=== PATIENT | female | born 2000 | race Caucasian/White ===

== ENCOUNTER 2019-01-08 17:40 | Emergency (ER) | payer OTHER, SELFPAY ==
--- OUTSIDE RECORDS SUMMARY | 2019-01-08 17:44 | XMS REPORT ---
:2000 [facility] Address [address] [place] [address] Dr. Vergara [address] [place] [id number] Care Team Providers Name Role Phone Unavailable Unavailable Unavailable Problems This patient has no known problems. Allergies, Adverse Reactions, Alerts This patient has no known allergies or adverse reactions. Medications This patient has no known medications.
--- NOTE | 2019-01-08 18:25 | EDPHYS ---
Physician Documentation [facility] Name: Rose Mary Ziegler Age: 18 yrs Sex: Female : 2000 Arrival Date: 01/08/2019 Time: 17:44 Bed 12 Private MD: None, None ED Physician Choco Landers HPI: 01/08 18:03 This 18 yrs old Female presents to ER via Ambulatory with complaints of Fall ps1 Injury. 18:03 patient states that she had a fall from standing height, slip and fall on wet floor. ps1 FOOSH left wrist pain. No obvious deformity. Pain localized a base of thumb. NV intact. RROM 2/2 pain. Able to ROM in all directions otherwise. . 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 - Social history:: Smoking status: Patient/guardian denies using tobacco. - Ebola Screening: : No symptoms or risks identified at this time. ROS: 18:03 Constitutional: Negative for fever, chills, and weight loss, Eyes: Negative for injury, ps1 pain, redness, and discharge, Cardiovascular: Negative for chest pain, palpitations, and edema, Respiratory: Negative for shortness of breath, cough, wheezing, and pleuritic chest pain, Abdomen/GI: Negative for abdominal pain, nausea, vomiting, diarrhea, and constipation, Skin: Negative for injury, rash, and discoloration, Neuro: Negative for headache, weakness, numbness, tingling, and seizure. 18:03 MS/extremity: Positive for tenderness, of the lateral aspect of left wrist. Exam: 18:03 Constitutional: This is a well developed, well nourished patient who is awake, alert, ps1 and in no acute distress. Head/Face: Normocephalic, atraumatic. Eyes: Pupils equal round and reactive to light, extra-ocular motions intact. Lids and lashes normal. Conjunctiva and sclera are non-icteric and not injected. Cardiovascular: Regular rate and rhythm. No gallops, murmurs, or rubs. Normal PMI, no JVD. No pulse deficits. Respiratory: Lungs have equal breath sounds bilaterally, clear to auscultation and percussion. No rales, rhonchi or wheezes noted. No increased work of breathing, no retractions or nasal flaring. 18:03 Musculoskeletal/extremity: Extremities: grossly normal except: noted in the lateral aspect of left hand: pain. Vital Signs: 17:49 BP 112 / 65; Pulse 71; Resp 18 S; Temp 98.3(TE); Pulse Ox 99% on R/A; Weight 76.2 kg aa5 (R); Height 5 ft. 2 in. (157.48 cm) (R); Pain 8/10; 17:49 Body Mass Index 30.73 (76.20 kg, 157.48 cm) aa5 MDM: 18:03 Patient medically screened. ps1 18:03 Data reviewed: vital signs, nurses notes. ps1 01/08 17:57 Order name: Wrist Left (3 View) XRAY ps1 01/08 18:23 Order name: Thumb Spica Splint; Complete Time: 18:40 ps1 Administered Medications: No medications were administered Disposition: 01/08/19 18:25 Discharged to Home. Impression: Pain in left wrist. - Condition is Stable. - Discharge Instructions: Joint Pain. - Prescriptions for Anaprox DS 550 mg Oral Tablet - take 1 tablet by ORAL route every 12 hours As needed; 20 tablet. - Medication Reconciliation Form, Thank You Letter, Antibiotic Education, Prescription Opioid Use form. - Follow up: Private Physician; When: As needed; Reason: Further diagnostic work-up, Recheck today's complaints, Re-evaluation by your physician. Follow up: Emergency Department; When: As needed; Reason: Worsening of condition. - Problem is new. - Symptoms are unchanged. Signatures: Dispatcher [employer] EDMS Montserrat Sanchez RN RN aa5 Sonali Francois RN RN ak1 Choco Landers MD MD ps1 Corrections: (The following items were deleted from the chart) 18:41 18:25 01/08/2019 18:25 Discharged to Home. Impression: Pain in left wrist. Condition is ak1 Stable. Forms are Medication Reconciliation Form, Thank You Letter, Antibiotic Education, Prescription Opioid Use. Follow up: Private Physician; When: As needed; Reason: Further diagnostic work-up, Recheck today's complaints, Re-evaluation by your physician. Follow up: Emergency Department; When: As needed; Reason: Worsening of condition. Problem is new. Symptoms are unchanged. ps1
--- NOTE | 2019-01-08 18:25 | ER ---
Nurse's Notes [facility] Name: Rose Mary Ziegler Age: 18 yrs Sex: Female : 2000 Arrival Date: 01/08/2019 Time: 17:44 Bed 12 Private MD: None, None Diagnosis: Pain in left wrist Presentation: 01/08 17:48 Presenting complaint: Patient states: "I slipped and fell this morning and hurt my left aa5 wrist". pt c/o left wrist pain, denies head injury, denies LOC. Transition of care: patient was not received from another setting of care. Onset of symptoms was January 08, 2019. Risk Assessment: Do you want to hurt yourself or someone else? Patient reports no desire to harm self or others. Initial Sepsis Screen: Does the patient meet any 2 criteria? No. Patient's initial sepsis screen is negative. Does the patient have a suspected source of infection? No. Patient's initial sepsis screen is negative. Care prior to arrival: None. 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 - Social history:: Smoking status: Patient/guardian denies using tobacco. - Ebola Screening: : No symptoms or risks identified at this time. Screenin:02 Abuse screen: Denies threats or abuse. Denies injuries from another. Nutritional ak1 screening: No deficits noted. Tuberculosis screening: No symptoms or risk factors identified. Fall Risk None identified. Assessment: 18:00 General: Appears in no apparent distress. comfortable, Behavior is calm, cooperative. ak1 Pain: Complains of pain in lateral aspect of left wrist and lateral aspect of left hand. Neuro: No deficits noted. Cardiovascular: No deficits noted. Respiratory: No deficits noted. GI: No signs and/or symptoms were reported involving the gastrointestinal system. : No signs and/or symptoms were reported regarding the genitourinary system. EENT: No signs and/or symptoms were reported regarding the EENT system. Derm: No signs and/or symptoms reported regarding the dermatologic system. Musculoskeletal: Capillary refill < 3 seconds, in left fingers. ice applied to left wrist. Range of motion: limited in left wrist, left thumb Swelling absent Reports pain in left wrist since 0900 s/p fall. Vital Signs: 17:49 BP 112 / 65; Pulse 71; Resp 18 S; Temp 98.3(TE); Pulse Ox 99% on R/A; Weight 76.2 kg aa5 (R); Height 5 ft. 2 in. (157.48 cm) (R); Pain 8/10; 17:49 Body Mass Index 30.73 (76.20 kg, 157.48 cm) aa5 ED Course: 17:44 Patient arrived in ED. dp 17:45 None, None is Private Physician. dp 17:48 Arm band placed on. aa5 17:49 Triage completed. aa5 17:54 Sonali Francois RN is Primary Nurse. ak1 17:56 Choco Landers MD is Attending Physician. ps1 18:02 Patient has correct armband on for positive identification. Call light in reach. Side ak1 rails up X 1. Adult w/ patient. Pulse ox on. NIBP on. 18:40 No provider procedures requiring assistance completed. Patient did not have IV access ak1 during this emergency room visit. 19:11 Wrist Left (3 View) XRAY In Process Unspecified. EDMS Administered Medications: No medications were administered Outcome: 18:25 Discharge ordered by . ps1 18:40 Discharged to home ambulatory, with family. ak1 18:40 Condition: good 18:40 Discharge instructions given to patient, family, Instructed on discharge instructions, follow up and referral plans. no drinking with medication, no driving heavy equipment, medication usage, splint care Demonstrated understanding of instructions, follow-up care, medications, splint care, Prescriptions given X 1. 18:41 Patient left the ED. ak1 Signatures: Dispatcher [employer] EDMS Montserrat Sanchez, RN RN aa5 Sonali Francois, PRISCILLA RN ak1 Choco Landers MD MD ps1 León Pitts dp
--- NOTE | 2019-01-08 19:18 | RAD REPORT ---
EXAM DESCRIPTION: RAD - Wrist Left 3 View - 01/08/2019 7:04 pm CLINICAL HISTORY: Left wrist pain status post injury FINDINGS: No fracture or dislocation is seen. If the patient continues to have symptoms to suggest an occult fracture then a followup plain film se miguelina in 7 days would be recommended
== END 2019-01-08 18:41 | disposition home or self-care (01) ==
LOC: ER 17:40
DX: M25.532 Pain in left wrist (principal)
CPT/HCPCS: 99283

== ENCOUNTER 2019-06-20 16:04 | Emergency (ER) | payer SELFPAY ==
--- OUTSIDE RECORDS SUMMARY | 2019-06-20 16:07 | XMS REPORT | Summary of Care ---
:2000 Author Organization [facility] Address [address] [place] [id number] Care Team Providers Name Role Phone Corey Fournier [facility] Primary Care Provider Reason for Visit Reason Comments DEPO PROVERA Encounter Details Date Type Department Care Team Description 03/02/2019 Nurse Visit [facility] Corey Fournier, TECHNICAL ACCOUNT REPRESENTATIVE [address] [place] [address] Depo-Provera [place] Visit, [facility] Nurse contraceptive status [address] (Primary Dx) [place] [address] Allergies No Known Allergiesdocumented as of this encounter (statuses as of 03/02/2019) Medications Medication Sig Dispensed Refills Start Date End Date Status butalbital-acetaminoph Take 1 tablet by 20 tablet 0 10/20/2018 Active en-caff 50-325-40 mg mouth every 4 tabletIndications: (four) hours as Other headache needed for Pain syndrome (scale 4-6). Hospital, Clinic, or Other Ordered Dose Route Frequency Start Date End Date Status Facility Administered Medication medroxyPROGESTERone 150 mg IM [id number] 06/06/2018 03/02/2019 Ended (DEPO-PROVERA) injection 150 mgIndications: Encounter for surveillance of injectable contraceptive documented as of this encounter (statuses as of 03/02/2019) Active Problems Problem Noted Date Well woman exam 04/13/2017 Encounter for contraceptive management, unspecified type 04/13/2017 Depo-Provera contraceptive status 04/13/2017 Screening for STD (sexually transmitted disease) 04/13/2017 Anal fissure 04/13/2017 Constipation, unspecified constipation type 04/13/2017 Morbid obesity 04/13/2017 Anxiety 11/27/2013 Overview: Overview: Diagnosed with anxiety, panic attacks in public places. Currently see psychiatry and on Paxil 10 mg. 12/25/2013 Saw psychiatry and is on Paxil 20 mg. Next appointment is about 1 month later. Suicidal thoughts 10/04/2013 documented as of this encounter (statuses as of 03/02/2019) Resolved Problems Problem Noted Date Resolved Date BMI 40.0-44.9, adult 04/13/2017 06/06/2018 Other general counseling and advice for contraceptive 04/13/2016 04/13/2017 management Depo-Provera contraceptive status 04/13/2016 04/13/2017 Headache disorder 02/05/2014 04/13/2017 Migraine without status migrainosus, not intractable 02/05/2014 04/13/2017 Overview: Overview: 02/11/2014 Saw neurology, headaches better on paxil, avoid using advil, follow up in 6 months. Increased body mass index (BMI) 12/25/2013 04/13/2017 Overview: Overview: 12/25/2013 Counseling provided, fasting labs ordered. Vitamin D deficiency 11/30/2013 04/13/2017 Overview: Overview: 11/15/13 VItamin D 25OH level is 17, will rescreen in 1 month. 12/25/2013 Vitamin D level reordered. 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 Dizziness 04/13/2017 Blurred vision 04/13/2017 documented as of this encounter (statuses as of 03/02/2019) Immunizations Name Administration Dates Next Due DTAP 02/10/2004, 12/01/2000, 01/04/2000, [birth year] H1n1 Vaccine 06/18/2009 HEPATITIS A 02/23/2002, 08/28/2001 HIB 4 Dose Schedule 12/01/2000, 01/04/2000, [birth year] HPV 04/17/2015, 02/25/2012, 08/12/2010 Hep B, Adol or Pedi Dosage 01/04/2000, 2000, 2000 Influenza Virus Vaccine 07/17/2013, 08/12/2010 Influenza Virus Vaccine Quad IM 3+ YRS 04/17/2015 Influenza Virus Vaccine Quad IM 04/17/2014 Multi-dose 6+ MO MMR 04/17/2015, 02/10/2004, 07/01/2000 Meningococcal Vaccine 02/25/2012, 08/12/2010 Pneumococcal 7 Conjugate, PCV7 12/01/2000, 07/01/2000 (Prevnar7) Polio (IPV/OPV) 02/10/2004, 03/28/2000, 1999, 1999 Tdap 02/25/2012, 08/12/2010 Varicella (varivax)(chicken pox) 02/25/2012, 07/01/2000 documented as of this encounter Social History Tobacco Use Types Packs/Day Years Used Date Never Smoker Smokeless Tobacco: Never Used Alcohol Use Drinks/Week oz/Week Comments No 0 Standard drinks or equivalent 0.0 Sex Assigned at Date Recorded Not on file Job Start Date Occupation Industry Not on file Not on file Not on file Travel History Travel Start Travel End No recent travel history available. documented as of this encounter Last Filed Vital Signs Vital Sign Reading Time Taken Comments Blood Pressure 105/69 03/02/2019 8:20 AM CDT Pulse 59 03/02/2019 8:20 AM CDT Temperature 36.4 C (97.6 F) 03/02/2019 8:20 AM CDT Respiratory Rate 18 03/02/2019 8:20 AM CDT Oxygen Saturation - - Inhaled Oxygen Concentration - - Weight 75.5 kg (166 lb 8 oz) 03/02/2019 8:20 AM CDT Height 157.5 cm (5' 2") 03/02/2019 8:20 AM CDT Body Mass Index 30.45 03/02/2019 8:20 AM CDT documented in this encounter Patient Instructions Patient InstructionsYen Llanos LVN - 03/02/2019 8:00 AM CDT Medroxyprogesterone injection [Contraceptive] Brand Names: Depo-Provera, Depo-subQ Provera 104 What is this medicine? MEDROXYPROGESTERONE (me DROX ee proe JOB te jess) contraceptive injections prevent . They provide effective control for 3 months. Depo-subQ Provera 104 is also used for treating pain related to endometriosis. How should I use this medicine? Depo-Provera Contraceptive injection is given into a muscle. Depo-subQ Provera 104 injection is given under the skin. These injections are given by a health healthcare prof. You must not be before getting an injection. The injection is usually given during the first 5 days after the start of a menstrual period or 6 weeks after delivery of a baby. Talk to your real estate appraiser regarding the use of this medicine in children. Special care may be needed. These injections have been used in female children who have started having menstrual periods. What side effects may I notice from receiving this medicine? Side effects that you should report to your doctor or health healthcare prof as soon as possible: allergic reactions like skin rash, itching or hives, swelling of the face, lips, or tongue breast tenderness or discharge breathing problems changes in vision depression feeling faint or lightheaded, falls fever pain in the abdomen, chest, groin, or leg problems with balance, talking, walking unusually weak or tired yellowing of the eyes or skin Side effects that usually do not require medical attention (report to your doctor or health healthcare prof if they continue or are bothersome): acne fluid retention and swelling headache irregular periods, spotting, or absent periods temporary pain, itching, or skin reaction at site where injected weight gain What may interact with this medicine? Do not take this medicine with any of the following medications: bosentan This medicine may also interact with the following medications: aminoglutethimide antibiotics or medicines for infections, especially rifampin, rifabutin, rifapentine, and griseofulvin aprepitant barbiturate medicines such as phenobarbital or primidone bexarotene carbamazepine medicines for seizures like ethotoin, felbamate, oxcarbazepine, phenytoin, topiramate modafinil [place]'s wort What if I miss a dose? Try not to miss a dose. You must get an injection once every 3 months to maintain control. If you cannot keep an appointment, call and reschedule it. If you wait longer than 13 weeks between Depo-Provera contraceptive injections or longer than 14 weeks between Depo-subQ Provera 104 injections, you could get . Use another method for control if you miss your appointment. You may also need a test before receiving another injection. Where should I keep my medicine? This does not apply. The injection will be given to you by a health healthcare prof. What should I tell my health care provider before I take this medicine? They need to know if you have any of these conditions: frequently drink alcohol asthma blood vessel disease or a history of a blood clot in the lungs or legs bone disease such as osteoporosis breast cancer diabetes eating disorder (anorexia nervosa or bulimia) high blood pressure HIV infection or AIDS kidney disease liver disease mental depression migraine seizures (convulsions) stroke tobacco smoker vaginal bleeding an unusual or allergic reaction to medroxyprogesterone, other hormones, medicines, foods, dyes, or preservatives or trying to get breast-feeding What should I watch for while using this medicine? This drug does not protect you against HIV infection (AIDS) or other sexually transmitted diseases. Use of this product may cause you to lose calcium from your bones. Loss of calcium may cause weak bones (osteoporosis). Only use this product for more than 2 years if other forms of control are not right for you. The longer you use this product for control the more likely you will be at risk for weak bones. Ask your health healthcare prof how you can keep strong bones. You may have a change in bleeding pattern or irregular periods. Many females stop having periods while taking this drug. If you have received your injections on time, your chance of being is very low. If you think you may be , see your health healthcare prof as soon as possible. Tell your health healthcare prof if you want to get within the next year. The effect of this medicine may last a long time after you get your last injection. NOTE:This sheet is a summary. It may not cover all possible information. If you have questions aboutthis medicine, talk to your doctor, pharmacist, or health care provider. Copyright 2018 Elsevier documented in this encounter Progress Notes Yen Llanos LVN - 03/02/2019 8:00 AM CDT18 year old female has been identified by and name. Verbal consent has been obtained by patientto have an injection of Depo Provera, as ordered by the provider. Date of last Depo Provera injection:11/30/2018, UPT negative today Last WWE: 06/06/2018 Encounter Diagnosis: v25.49 The site was cleaned with an alcohol swab and given intramuscularly (IM) in the left gluteus. A band aid dressing was then applied to the injection site. The patient tolerated the procedure well . Advised patient on Calcium intake 500-1200 mg daily. ED warnings given. Patient to return to clinic in 12 weeks for next Depo. Patient verbalized understanding. Yen Llanos LVN 03/02/2019 8:21 AM documented in this encounter Plan of Treatment Date Type Specialty Care Team Description 05/25/2019 Nurse Visit OB Satellites Visit, [facility] Nurse Health Maintenance Due Date Last Done Comments MENINGOCOCCAL B VACCINES (1 2009 of 2 - Risk Bexsero 2-dose series) INFLUENZA VACCINE (#1) 2019 04/17/2015, 04/17/2014, 07/17/2013, Additional history exists CHLAMYDIA SCREENING 06/06/2019 06/06/2018, 12/06/2017, 04/13/2017, Additional history exists DTaP,Tdap,and Td Vaccines (8 02/24/2022 02/25/2012, 08/12/2010, - Td) 02/10/2004, Additional history exists PNEUMOCOCCAL 0-64 YEARS Completed 12/01/2000, 07/01/2000 COMBINED SERIES MENINGOCOCCAL VACCINE Aged Out 02/25/2012, 08/12/2010 No longer eligible based on patient's age to complete this topic VARICELLA VACCINES Completed 02/25/2012, 07/01/2000 HPV VACCINES Completed 04/17/2015, 02/25/2012, 08/12/2010 documented as of this encounter Procedures Procedure Name Priority Date/Time Associated Diagnosis Comments POCT Routine 03/02/2019 8:15 Depo-Provera Results for this TEST AM CDT contraceptive status procedure are in the results section. documented in this encounter Results POCT TEST (03/02/2019 8:15 AM CDT) POCT PREG Negative On board controls acceptable Yes with C Line POCT PREG LOT # POCT PREG TEST DATE Specimen Urine - URINE, CLEAN CATCH documented in this encounter Visit Diagnoses Diagnosis Depo-Provera contraceptive status - Primary Surveillance of other previously prescribed contraceptive method documented in this encounter Administered Medications Medication Order MAR Action Action Date Dose Rate Site medroxyPROGESTERone Given 03/02/2019 8:31 150 mg Left Upper Quad. (DEPO-PROVERA) injection 150 AM CDT Gluteus mg 150 mg, Intramuscular, [id number], 4 doses, First dose on Tue06/06/18 at 1615, Last dose on Tue02/13/19 at 1615, Routine Given 11/30/2018 2:22 PM CDT 150 mg Right Dorsogluteal-IM Given 08/29/2018 4:24 PM [employer] 150 mg Right Deltoid-IM documented in this encounter Insurance Payer Benefit Plan Subscriber ID Effective Phone Address Type / Group Dates [facility] xxxxxxxxx 2019-[facility] [phone] [place] 00 [id number] [place] [address] documented as of this encounter Advance Directives Name Relationship Healthcare Agent Relationship Communication Cristel Morrell Grandparent Primary healthcare agent [phone] ([email or web address]
--- OUTSIDE RECORDS SUMMARY | 2019-06-20 16:07 | XMS REPORT | Summary of Care ---
:2000 Author Organization [facility] Address [address] [place] [address] Care Team Providers Name Role Phone Corey Fournier [facility] Primary Care Provider Reason for Visit Reason Comments DEPO PROVERA Encounter Details Date Type Department Care Team Description 03/02/2019 Nurse Visit 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 You must not be before getting an injection. The injection is usually given during the first 5 days after the start of a menstrual period or 6 weeks after delivery of a baby. Talk to your configuration engineer regarding the use of this medicine in children. Special care may be needed. These injections have been used in female children who have started having menstrual periods. What side effects may I notice from receiving this medicine? Side effects that you should report to your doctor or health occasional caregiver as soon as possible: allergic reactions like [...] attention (report to your doctor or health occasional caregiver if they continue or are bothersome): acne [...] like ethotoin, felbamate, oxcarbazepine, phenytoin, topiramate modafinil Glidden's wort What if I miss a dose? [...] be given to you by a health occasional caregiver. What should I tell my health care [...] risk for weak bones. Ask your health occasional caregiver how you can keep strong bones. You may have a change in bleeding pattern or irregular periods. Many females stop having periods while taking this drug. If you have received your injections on time, your chance of being is very low. If you think you may be , see your health occasional caregiver as soon as possible. Tell your health occasional caregiver if you want to get within the [...] Description 05/25/2019 Nurse Visit [facility] Visit, [facility] Nurse Name Type Priority Associated Diagnoses Order Schedule POCT TEST LAB Routine Depo-Provera contraceptive Ordered: 2018 status Health Maintenance Due Date Last Done Comments [...] 02/25/2012, 08/12/2010 documented as of this encounter Results Not on filedocumented in this encounter Visit Diagnoses Diagnosis Depo-Provera contraceptive status - Primary Surveillance of other previously prescribed contraceptive method documented in this encounter Administered Medications Medication Order MAR Action Action Date Dose Rate Site medroxyPROGESTERone Given 03/02/2019 8:31 150 mg Left Upper Quad. (DEPO-PROVERA) injection 150 AM CDT Gluteus mg 150 mg, Intramuscular, [id number], 4 doses, First dose on Tue06/06/18 at 1615, Last dose on Tue02/13/19 at 1615, Routine Given 11/30/2018 2:22 PM CDT 150 mg Right Dorsogluteal-IM Given 08/29/2018 4:24 PM ARTIST MANAGER 150 mg Right Deltoid-IM documented in this encounter Insurance Payer Benefit Plan Subscriber ID Effective Phone Address Type / Group Dates [facility] xxxxxxxxx 2019-Prese [phone] Medicaid WOMEN [address] [place] [address] documented as of this encounter Advance Directives Name Relationship Healthcare Agent Relationship Communication Cristel Morrell Grandparent Primary healthcare agent [phone] ([email or web address]
--- OUTSIDE RECORDS SUMMARY | 2019-06-20 16:07 | XMS REPORT ---
:2000 [facility] Address [address] [place] [address] Dr. Vergara [address] [place] [id number] Care Team Providers Name Role Phone Unavailable Unavailable Unavailable Problems This patient has no known problems. Allergies, Adverse Reactions, Alerts This patient has no known allergies or adverse reactions. Medications This patient has no known medications.
--- OUTSIDE RECORDS SUMMARY | 2019-06-20 16:07 | XMS REPORT | Summary of Care ---
:2000 Author Organization [facility] Address [address] [place] [address] Care Team Providers Name Role Phone Corey Fournier [facility] Primary Care Provider Reason for Visit Reason Comments DEPO PROVERA Encounter Details Date Type Department Care Team Description 03/02/[address] [facility]- Corey Fournier, SENIOR FINANCIAL [address] [place] [address] Depo-Provera [place] Visit, 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 You must not be before getting an injection. The injection is usually given during the first 5 days after the start of a menstrual period or 6 weeks after delivery of a baby. Talk to your project coordinator rn regarding the use of this medicine in children. Special care may be needed. These injections have been used in female children who have started having menstrual periods. What side effects may I notice from receiving this medicine? Side effects that you should report to your doctor or health day care home mother as soon as possible: allergic reactions like [...] attention (report to your doctor or health day care home mother if they continue or are bothersome): acne [...] like ethotoin, felbamate, oxcarbazepine, phenytoin, topiramate modafinil Carrier's wort What if I miss a dose? [...] be given to you by a health day care home mother. What should I tell my health care [...] risk for weak bones. Ask your health day care home mother how you can keep strong bones. You may have a change in bleeding pattern or irregular periods. Many females stop having periods while taking this drug. If you have received your injections on time, your chance of being is very low. If you think you may be , see your health day care home mother as soon as possible. Tell your health day care home mother if you want to get within the [...] Description 05/25/2019 Nurse Visit [facility] Satellites Visit, [facility] Nurse Name Type Priority Associated Diagnoses Order [...] AM CDT Gluteus mg 150 mg, Intramuscular, [id number], 4 doses, First dose on Tue06/06/18 at 1615, Last dose on Tue02/13/19 at 1615, Routine Given 11/30/2018 2:22 PM CDT 150 mg Right Dorsogluteal-IM Given 08/29/2018 4:24 PM SENIOR LINUX SYSTEMS ENGINEER 150 mg Right Deltoid-IM documented in this encounter Insurance Payer Benefit Plan Subscriber ID Effective Phone Address Type / Group Dates [facility] xxxxxxxxx 2019-Prese [phone] Medicaid WOMEN [address] [place] [address] documented as of this encounter Advance Directives Name Relationship Healthcare Agent Relationship Communication Cristel Morrell Grandparent Primary healthcare agent [phone] ([email or web address]
[2019-06-20] MEDS ORDERED: NA CHLORIDE 0.9% 1,000 ML ONE ×2 (16:29→17:34)
[2019-06-20 17:03] LABS: Absolute Lymphocytes (CBC) 1.8 K/uL (0.7-4.9); Basophils % 0.7 % (0-1.3); Hematocrit 45.9 % (36.0-45.0); Lymphocytes % 46.5 % (15.3-44.8); MPV 9.3 fL (7.6-11.3); RBC Red Blood Cell Count 5.18 M/uL (3.86-4.86)
[2019-06-20 17:06] LABS: Urine Blood TRACE (NEG); Urine Glucose NEGATIVE (NEG); Urine Protein 1+ (NEG); Urine Specific Gravity 1.025 (1.005-1.030); Urine pH 5.5 (5.0-7.0)
[2019-06-20 17:28] LABS: Potassium 3.7 mmol/L (3.5-5.1)
[2019-06-20 17:57] LABS: Urine Bacteria 20-50 /HPF (<20); Urine RBC <5 /HPF (NONE SEEN)
[2019-06-20 17:58] LABS: Urine Culture Reflex Order NOT NEEDED; Urine Mucus 2+ /HPF (NONE SEEN)
[2019-06-20] MEDS ORDERED: KETOROLAC 30 MG/ML INJ ONE (18:16)
[2019-06-20 18:28] LABS: Urine Specific Gravity 1.025 (1.005-1.030)
--- NOTE | 2019-06-20 18:57 | RAD REPORT ---
EXAM DESCRIPTION: CT - Abdomen Pelvis W Contrast - 06/20/2019 5:53 pm CLINICAL HISTORY: r/o pyelonephritisabdominal pain, kidney infection, possible pyelonephritis COMPARISON: None. TECHNIQUE: Biphasic, helical CT imaging of the abdomen and pelvis was performed following 100 ml non -ionic IV contrast. No oral contrast. All CT scans are performed using dose optimization technique as appropriate and may include automated exposure control or mA/KV adjustment according to patient size. FINDINGS: No suspicious findings in the lung bases. The liver, spleen, and pancreas show no suspicious findings. Gallbladder and biliary tree are also wi thout suspicious finding. Symmetric renal function is seen with no hydronephrosis or suspicious renal mass. No pyelonephritis o r acute parenchymal process. No bladder abnormalities. No adrenal abnormalities. Uterus and ovaries show no suspicious findings. No dilated bowel loops or bowel wall thickening. No appendicitis findings. No free air or pneumatosis . Physiologic quantity of free fluid in the cul de sac. No hernia, mass or bulky lymphadenopathy. Pa tient has nonspecific bilateral inguinal lymph nodes up to 2.5 cm in size. Few small iliac chain lymp h nodes are present. No suspicious bony findings. IMPRESSION: No pyelonephritis or acute finding. No appendicitis or acute GI finding. No DIRECTOR OF MARKETING OPERATIONS abnormality seen.
--- NOTE | 2019-06-20 19:14 | ER ---
Nurse[facility] Name: Rose Mary Ziegler Age: 18 yrs Sex: Female : 2000 Arrival Date: 06/20/2019 Time: 16:07 Bed 20 Private MD: Diagnosis: Dehydration Presentation: 06/20 16:11 Presenting complaint: Low back pain x 1 week, headache and nausea x 3 days, dizziness hb since last night. Transition of care: patient was not received from another setting of care. Onset of symptoms was June 14, 2019. Risk Assessment: Do you want to hurt yourself or someone else? Patient reports no desire to harm self or others. Initial Sepsis Screen: Does the patient meet any 2 criteria? No. Patient's initial sepsis screen is negative. Care prior to arrival: None. 16:11 Method Of Arrival: Ambulatory hb 16:11 Acuity: ABY 3 hb Triage Assessment: 16:15 General: Appears in no apparent distress. comfortable, Behavior is cooperative, bp appropriate for age, anxious. Pain: Denies pain. EENT: No deficits noted. Neuro: No deficits noted. Cardiovascular: Rhythm is sinus rhythm. Respiratory: No deficits noted. GI: No signs and/or symptoms were reported involving the gastrointestinal system. : Reports burning with urination. Derm: No deficits noted. Musculoskeletal: No deficits noted. 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 - Social history:: Smoking status: Patient/guardian denies using tobacco. - Ebola Screening: : No symptoms or risks identified at this time. Screenin:05 Abuse screen: Denies threats or abuse. Denies injuries from another. Nutritional bp screening: No deficits noted. Tuberculosis screening: No symptoms or risk factors identified. Fall Risk None identified. Assessment: 16:15 General: SEE TRIAGE NOTE. bp 17:00 Reassessment: IVF INFUSING. bp 17:40 Reassessment: PT TO CT. bp 18:28 Reassessment: IVF INFUSING FOR DISPO. bp 19:28 Reassessment: Patient appears in no apparent distress at this time. Patient is alert, rr5 oriented x 3, equal unlabored respirations, skin warm/dry/pink. discharge instruction given and explained without complaints made. General: Appears in no apparent distress. comfortable, Behavior is calm, cooperative, appropriate for age. Neuro: Level of Consciousness is awake, alert, obeys commands, Oriented to person, place, time, situation, Appropriate for age. Cardiovascular: Capillary refill < 3 seconds Patient's skin is warm and dry. Respiratory: Airway is patent Respiratory effort is even, unlabored, Respiratory pattern is regular, symmetrical. GI: No signs and/or symptoms were reported involving the gastrointestinal system. Musculoskeletal: Capillary refill < 3 seconds. Vital Signs: 16:13 BP 123 / 84; Pulse 75; Resp 16; Temp 98.4(O); Pulse Ox 99% on R/A; Weight 76.66 kg; hb Height 5 ft. 2 in. (157.48 cm); Pain 7/10; 17:00 BP 100 / 49; Pulse 63; Resp 16; Pulse Ox 100% ; bp 17:05 BP 115 / 71 Supine; Pulse 62; Pulse Ox 100% ; bp 17:07 BP 114 / 72; Pulse 84; Pulse Ox 100% ; bp 18:00 BP 109 / 73; Pulse 83; Resp 20; Pulse Ox 94% ; bp 19:20 BP 105 / 62; Pulse 79; Resp 18; Temp 98; Pulse Ox 99% ; Pain 0/10; rr5 16:13 Body Mass Index 30.91 (76.66 kg, 157.48 cm) hb ED Course: 16:07 Patient arrived in ED. as 16:08 Cyril Muniz FNP-C is PHCP. la1 16:08 Raman Draper MD is Attending Physician. la1 16:10 PHCP role handed off by Cyril Muniz FNP-C kb 16:10 Bri Alonso FNP-C is PHCP. kb 16:12 Triage completed. hb 16:14 Arm band placed on. hb 16:15 Venkat Moreira, PRISCILLA is Primary Nurse. bp 16:21 Radiology exam delayed due to lab results not completed at this time. (BUN/Creatinine). vm2 16:30 Inserted saline lock: 20 gauge in right antecubital area, using aseptic technique. bp Blood collected. 17:05 Patient has correct armband on for positive identification. Bed in low position. Call bp light in reach. Side rails up X2. Adult w/ patient. 17:53 CT Abd/Pelvis - IV Contrast Only In Process Unspecified. EDMS 17:58 PHCP role handed off by Bri Alonso FNP-C la1 17:58 Cyril Muniz FNP-C is PHCP. la1 19:30 No provider procedures requiring assistance completed. IV discontinued, intact, rr5 bleeding controlled, No redness/swelling at site. Pressure dressing applied. Administered Medications: 16:30 Drug: NS 0.9% 1000 ml Route: IV; Rate: 1000 ml; Site: right antecubital; bp 19:31 Follow up: Response: No adverse reaction; IV Status: Order to discontinue infusion; IV rr5 Intake: 800ml 17:30 Drug: NS 0.9% 1000 ml Route: IV; Rate: 1000 ml; Site: right antecubital; bp 19:31 Follow up: Response: No adverse reaction; IV Status: Order to discontinue infusion; IV rr5 Intake: 800ml 18:15 Drug: TORadol - Ketorolac 15 mg Route: IVP; Site: right antecubital; bp 19:31 Follow up: Response: No adverse reaction rr5 Intake: 19:31 IV: 800ml; Total: 800ml. rr5 19:31 IV: 800ml; Total: 1600ml. rr5 Outcome: 19:13 Discharge ordered by MD. la1 19:30 Discharged to home ambulatory, with family. rr5 19:30 Condition: stable 19:30 Discharge instructions given to patient, Instructed on discharge instructions, follow up and referral plans. Demonstrated understanding of instructions, follow-up care. 19:34 Patient left the ED. rr5 Signatures: Dispatcher [employer] EDMD Bri Alonso FNP-C FNP-Alyssa Foster as Cyril Muniz FNP-C FNP-Ibis Perry, PRISCILLA WELLS Brunilda Nicolas [facility] Venkat Moreira RN RN bp Roque, Raymond, RN RN rr5
--- NOTE | 2019-06-20 19:15 | EDPHYS ---
Physician Documentation [facility] Name: Rose Mary Ziegler Age: 18 yrs Sex: Female : 2000 Arrival Date: 06/20/2019 Time: 16:07 Bed 20 Private MD: ED Physician Raman Draper HPI: 06/20 16:37 This 18 yrs old Female presents to ER via Ambulatory with complaints of kb Urinary Problem, Dehydration. 16:37 The patient complains of pain in the left flank and right flank. The pain does not kb radiate. Onset: The symptoms/episode began/occurred 1 week(s) ago. Modifying factors: The symptoms are alleviated by nothing. the symptoms are aggravated by nothing. Associated signs and symptoms: Pertinent positives: dysuria, nausea, dark urine. Severity of pain: At its worst the pain was moderate in the emergency department the pain is unchanged. The patient has not experienced similar symptoms in the past. The patient has been recently seen by a physician: the patient's primary care provider, with similar presenting complaints, and was sent to the [facility] Emergency Department for further evaluation. Pt reports bilateral flank pain for a week, headache, malaise, nausea, dizziness, decreased appetite and dark urine. Went to PCP today and was told she was so dehydrated her blood wouldn't come out for testing. . INFORMATION ASSOC: 16:13 LMP N/A - Depo-provera hb Historical: - Allergies: 16:13 No Known Allergies; hb - Home Meds: 16:13 None [Active]; hb - PMHx: 16:13 Migraines; hb - PSHx: 16:13 None; hb - Immunization history:: Adult Immunizations up to date. - Social history:: Smoking status: Patient/guardian denies using tobacco. - Ebola Screening: : No symptoms or risks identified at this time. ROS: 16:23 ENT: Negative for injury, pain, and discharge, Neck: Negative for injury, pain, and kb swelling, Cardiovascular: Negative for chest pain, palpitations, and edema, Respiratory: Negative for shortness of breath, cough, wheezing, and pleuritic chest pain, MS/Extremity: Negative for injury and deformity, Skin: Negative for injury, rash, and discoloration. 16:23 Constitutional: Positive for body aches, chills, fever, malaise, poor PO intake. 16:23 Abdomen/GI: Positive for nausea. 16:23 Back: Positive for pain at rest, pain with movement. 16:23 Neuro: Positive for dizziness, headache. Exam: 16:37 Head/Face: Normocephalic, atraumatic. Eyes: Pupils equal round and reactive to light, kb extra-ocular motions intact. Lids and lashes normal. Conjunctiva and sclera are non-icteric and not injected. Cornea within normal limits. Periorbital areas with no swelling, redness, or edema. ENT: Nares patent. No nasal discharge, no septal abnormalities noted. Tympanic membranes are normal and external auditory canals are clear. Oropharynx with no redness, swelling, or masses, exudates, or evidence of obstruction, uvula midline. Mucous membranes moist. Neck: Trachea midline, no thyromegaly or masses palpated, and no cervical lymphadenopathy. Supple, full range of motion without nuchal rigidity, or vertebral point tenderness. No Meningismus. Chest/axilla: Normal chest wall appearance and motion. Nontender with no deformity. No lesions are appreciated. Cardiovascular: Regular rate and rhythm with a normal S1 and S2. No gallops, murmurs, or rubs. Normal PMI, no JVD. No pulse deficits. Respiratory: Lungs have equal breath sounds bilaterally, clear to auscultation and percussion. No rales, rhonchi or wheezes noted. No increased work of breathing, no retractions or nasal flaring. Abdomen/GI: Soft, non-tender, with normal bowel sounds. No distension or tympany. No guarding or rebound. No evidence of tenderness throughout. Back: No spinal tenderness. No costovertebral tenderness. Full range of motion. Skin: Warm, dry with normal turgor. Normal color with no rashes, no lesions, and no evidence of cellulitis. MS/ Extremity: Pulses equal, no cyanosis. Neurovascular intact. Full, normal range of motion. Neuro: Awake and alert, GCS 15, oriented to person, place, time, and situation. Cranial nerves II-XII grossly intact. Motor strength 5/5 in all extremities. Sensory grossly intact. Cerebellar exam normal. Normal gait. 16:37 Constitutional: The patient appears alert, awake, uncomfortable. Vital Signs: 16:13 BP 123 / 84; Pulse 75; Resp 16; Temp 98.4(O); Pulse Ox 99% on R/A; Weight 76.66 kg; hb Height 5 ft. 2 in. (157.48 cm); Pain 7/10; 17:00 BP 100 / 49; Pulse 63; Resp 16; Pulse Ox 100% ; bp 17:05 BP 115 / 71 Supine; Pulse 62; Pulse Ox 100% ; bp 17:07 BP 114 / 72; Pulse 84; Pulse Ox 100% ; bp 18:00 BP 109 / 73; Pulse 83; Resp 20; Pulse Ox 94% ; bp 19:20 BP 105 / 62; Pulse 79; Resp 18; Temp 98; Pulse Ox 99% ; Pain 0/10; rr5 16:13 Body Mass Index 30.91 (76.66 kg, 157.48 cm) hb MDM: 16:16 Patient medically screened. kb 16:23 Data reviewed: vital signs, nurses notes. Data interpreted: Pulse oximetry: on room air kb is 99 %. Interpretation: normal. 06/20 16:18 Order name: CBC with Diff; Complete Time: 17:10 kb 06/20 16:18 Order name: Basic Metabolic Panel; Complete Time: 17:29 kb 06/20 16:37 Order name: Riley Screen Profile; Complete Time: 17:28 kb 06/20 16:52 Order name: Urine Dipstick--Ancillary (enter results); Complete Time: 17:10 bd 06/20 17:30 Order name: Urine Microscopic Only; Complete Time: 18:03 kb 06/20 18:10 Order name: Urine --Ancillary (enter results); Complete Time: 19:05 bd 06/20 16:18 Order name: Urine Dipstick-Ancillary (obtain specimen); Complete Time: 16:54 kb 06/20 16:18 Order name: IV Start; Complete Time: 16:54 kb 06/20 16:18 Order name: CT Abd/Pelvis - IV Contrast Only; Complete Time: 19:05 kb 06/20 16:39 Order name: Orthostatics; Complete Time: 17:10 kb Administered Medications: 16:30 Drug: NS 0.9% 1000 ml Route: IV; Rate: 1000 ml; Site: right antecubital; bp 19:31 Follow up: Response: No adverse reaction; IV Status: Order to discontinue infusion; IV rr5 Intake: 800ml 17:30 Drug: NS 0.9% 1000 ml Route: IV; Rate: 1000 ml; Site: right antecubital; bp 19:31 Follow up: Response: No adverse reaction; IV Status: Order to discontinue infusion; IV rr5 Intake: 800ml 18:15 Drug: TORadol - Ketorolac 15 mg Route: IVP; Site: right antecubital; bp 19:31 Follow up: Response: No adverse reaction rr5 Disposition: 06/20/19 19:13 Discharged to Home. Impression: Dehydration. - Condition is Stable. - Discharge Instructions: Dehydration, Adult, Rehydration, Adult. - Medication Reconciliation Form, Thank You Letter form. - Follow up: Private Physician; When: 2 - 3 days; Reason: Recheck today's complaints, Re-evaluation by your physician. - Problem is new. - Symptoms have improved. Addendum: 06/21/2019 21:07 Co-signature as Attending Physician, Raman Draper MD I agree with the assessment and k dr plan of care. Signatures: Dispatcher [employer] EDMS Bri Alonso, SOAP INSPECTOR-C SOAP INSPECTOR-Ckb Raman Draper MD MD kdr Cyril Muniz, SOAP INSPECTOR-C SOAP INSPECTOR-Cla1 Ibis Marin, RN RN Venkat Moreira, PRISCILLA RN bp Shun Sierra, RN RN rr5 Corrections: (The following items were deleted from the chart) 06/20 19:34 19:13 06/20/2019 19:13 Discharged to Home. Impression: Dehydration. Condition is rr5 Stable. Forms are Medication Reconciliation Form, Thank You Letter, Antibiotic Education, Prescription Opioid Use. Follow up: Private Physician; When: 2 - 3 days; Reason: Recheck today's complaints, Re-evaluation by your physician. Problem is new. Symptoms have improved. la1
[2019-06-20 22:42] VITALS: BP 105/62; TEMP 98; O2SAT 99
== END 2019-06-20 19:34 | disposition home or self-care (01) ==
LOC: ER 16:04
DX: E86.0 Dehydration (principal)
CPT/HCPCS: 36415; 74177; 80048; 81003; 81015; 81025; 85025; 86308; 96361; 96374; 99284; J7030; Q9967